=== PATIENT | female | born 1965 | race Caucasian/White ===

== ENCOUNTER 2020-01-11 06:21 | Inpatient (IN) ==
[~2020-01-11 06:21] MED LIST: ROPIVACAINE HCL/PF 100 MG, EPINEPHrine 0.2 MG, KETOROLAC TROMETHAMINE 30 MG in NORMAL S... IJ PRN; TRANEXAMIC ACID 1,000 MG in NORMAL SALINE 100 ML IV PRN; ceFAZolin SODIUM 1 GM VIAL IV PRN
[2020-01-11] MEDS: RINGER'S SOLUTION,LACTATED 1,000 ML IV PRN ×2 (07:10→09:30)
--- NOTE | 2020-01-11 07:23 | ANES ---
Anesthesia Pre Procedure Eval Vitals/Labs: Last Vital Signs Temp 36.9 C 01/11/20 06:27 Pulse 57 L 01/11/20 06:27 Resp 18 01/11/20 06:27 BP 144/79 H 01/11/20 06:27 Pulse Ox 97 01/11/20 06:27 HOME MEDICATIONS atorvastatin 20 mg tablet 20 mg PO DAILY 08/04/18 [Last Taken Unknown] escitalopram oxalate 10 mg tablet 10 mg PO DAILY 08/04/18 [Last Taken Unknown] levetiracetam 500 mg tablet 500 mg PO BID 08/04/18 [Last Taken Unknown] levothyroxine 150 mcg tablet 150 mcg PO DAILY 08/04/18 [Last Taken Unknown] cholecalciferol (vitamin D3) 50 mcg (2,000 unit) capsule 5,000 unit PO DAILY cap 08/10/18 [Last Taken Unknown] olmesartan 40 mg tablet 40 mg PO DAILY #30 tab 10/18/19 [Last Taken Unknown] metoprolol succinate 100 mg tablet,extended release 24 hr 100 mg PO DAILY #90 tab 11/30/19 [Last Taken 01/10/20] Allergies/Adverse Reactions: Allergies Allergy/AdvReac Type Severity Reaction Status Date / Time codeine Allergy upset Verified 01/11/20 06:38 stomach iodine AdvReac Unknown unknown Verified 01/11/20 06:38 carbamazepine [From Tegretol] AdvReac lower Verified 01/11/20 06:38 platelet count phenobarbital AdvReac lower Verified 01/11/20 06:38 platelet count phenytoin sodium AdvReac lower Verified 01/11/20 06:38 [From Dilantin] platelet count phenytoin sodium extended AdvReac lower Verified 01/11/20 06:38 [From Dilantin] platelet count - Planned Procedure Planned Procedure: Right Arthroplasty Total Knee Medication List Reviewed:: Yes Allergies Verified: Yes Medical History (Last Reviewed 01/11/20 @ 07:22 by Jasson Dominguez CRNA) CPAP (continuous positive airway pressure) dependence (Chronic) History of tuberous sclerosis (Chronic) Onset Date: ~2011 Seizures (Chronic) Onset Date: Unknown Plantar fasciitis, bilateral (Resolved) Onset Date: ~2015 Hypothyroidism (Chronic) Onset Date: Unknown Hypertension (Chronic) Onset Date: Unknown Asthma (Chronic) Onset Date: Unknown Sleep apnea Surgical History (Last Reviewed 01/11/20 @ 07:22 by Jasson Dominguez CRNA) History of ankle surgery Onset Date: Unknown right History of section Onset Date: Unknown History of total thyroidectomy Onset Date: ~2011 Family History (Last Reviewed 01/11/20 @ 07:22 by Jasson Dominguez CRNA) Father No known health problems Mother No known health problems - Airway/Neck/Teeth Within Normal Limits:: Yes Teeth Condition: intact Mallampatti Score: 2 Thyromental (T-M) distance: > 6 cm Mandibulo Hyoid distance: > 3 cm - Respiratory Respiratory Physical: lungs clear Smoking Status: Never smoker Discussed smoking cessation including day of surgery: No Sleep Apnea currently treated: No Sleep Apnea by current assessment: No Discussed Risks/Treatment of SAMANTHA: No - Cardiovascular Tolerate Activity: Fair Heart Sounds: S1 & S2, Regular - Gastrointestinal NPO since: mn - Anesthesia Assessment and Plan ASA Class: PS, III Anesthesia Type Plan: Block - Bilateral ultrasound guided adductor canal nerve block for postop analgesia, Spinal
[2020-01-11] MEDS ORDERED: BUPIVACAINE HCL/EPINEPHRINE/PF 30 ML VIAL IJ ONE (07:25)
[2020-01-11] MEDS ORDERED: LIDOCAINE HCL 20 ML VIAL ONE (07:25)
[2020-01-11] MEDS ORDERED: fentaNYL CITRATE/PF 50 MCG/ML AMPUL ONE (07:25)
[2020-01-11] MEDS ORDERED: ONDANSETRON HCL/PF 2 MG/ML VIAL ONE (07:26)
[2020-01-11] MEDS ORDERED: PROPOFOL VIAL IV ONE (07:26)
[2020-01-11] MEDS ORDERED: HYDROmorphone HCL 2 MG/ML VIAL IV PRN (07:30)
[2020-01-11] MEDS ORDERED: PROCHLORPERAZINE EDISYLATE 5 MG/ML VIAL IV PRN (07:30)
[2020-01-11] MEDS ORDERED: diphenhydrAMINE HCL 50 MG/ML VIAL IV PRN ×2 (07:30→09:51)
[2020-01-11] MEDS ORDERED: NALOXONE HCL 0.4 MG/ML VIAL IV PRN (07:30)
[2020-01-11] MEDS ORDERED: oxyCODONE HCL/ACETAMINOPHEN 1 TAB TABLET PO PRN (09:51)
[2020-01-11] MEDS ORDERED: ACETAMINOPHEN 500 MG TABLET PO PRN (09:51)
[2020-01-11] MEDS ORDERED: MORPHINE SULFATE 2 MG/ML DISP.SYRIN IV PRN (09:51)
[2020-01-11] MEDS ORDERED: MAG HYDROX/ALUMINUM HYD/SIMETH 30 ML UDC PO PRN (09:51)
[2020-01-11] MEDS ORDERED: MAGNESIUM HYDROXIDE 30 ML UDC PO PRN (09:51)
--- NOTE | 2020-01-11 09:56 | OR ---
Operative Report - Dictated Report Narrative: Date: 01/11/2020 Preoperative diagnosis: Right knee degenerative joint disease. Postoperative diagnosis: Right knee degenerative joint disease. Procedure: Right total knee arthroplasty. Surgeon: Bebo Saunders M.D. Gas Tester: Mike Huang PA-C provided a set of essential, skilled, educated hands that assisted in positioning, transfer, retraction, manipulation, irrigation, closure of wounds, and placement of dressings all of which could not be provided by the available surgical crew. Anesthesia: Spinal with regional block and local periarticular joint injection. Complications: None Specimens: Bone for disposal. Estimated blood loss: Minimal. Tourniquet time: 58 min at 300 mmHg Retained implants: Depuy Attune size 5 standard lugged cemented posterior stabilized femoral component. Size 4 cemented rotating bearing tibial platform. 5 by 6 millimeter posterior stabilized cross-linked tibial insert. 35 millimeter medialized patella button. Indications: Olivia is a 54-year-old female who has been followed in my clinic for period of time with significant complaints of right knee pain consistent with arthritic changes. They had failed conservative measures including but not limited to activity modification, passage of time, medications, and other cons ervative measures. Patient wished to proceed with surgical treatment. The risks, benefits, and alternatives were discussed in clinic. The risks of , blood clots, bleeding, infection, nerve/tendon blood vessel/ injury, malposition of components, intraoperative fracture, postoperative limited range of motion, persistent pain, failure of components, and need for additional procedures. Patient wished to proceed consent was obtained after answering all questions. Procedure: After marking the correct extremity on the floor, the patient was taken to the operating room. A timeout was performed. IV antibiotics consisting of 2 g of Ancef were administered prior to the procedure. A regional followed by spinal anesthetic was induced by anesthesia. on the operative table with all bony prominences well-padded. Bass catheter was placed and a bump was placed under the operative side buttock. SCDs and AMRIT hose were utilized on the nonoperative leg. A well-padded tourniquet was applied to the operative thigh. The operative leg was then pre-scrubbed with alcohol prepped and draped in a standard sterile fashion. After exsanguinating the extremity with an Esmarch bandage, the tourniquet was inflated. After marking out the anterior knee for standard incision centered over the patella, the skin was incised and dissected down to the joint retinaculum. The joint retinaculum was marked out as well as the horizontal axis of the patella, and a standard medial parapatellar arthrotomy was then made. The most proximal aspect of the quadriceps tendon and the patella tendon insertion were protected from release. A partial synovectomy was performed as well as a resection of the infrapatellar fat pad. The distal femoral fat pad proximal to the trochlea was also resected using cautery. The soft tissues were elevated off the medial aspect of the proximal tibia using a Hancock elevator ensuring that we did not transect the medial collateral ligament. Upon initial evaluation range of motion was approximately 0 degrees to 120 degrees of flexion. There were signs of advanced arthrosis in the medial and patellofemoral joint spaces. There were small marginal osteophytes which were removed with a rongeur. The knee was hyperflexed and the patella was tucked laterally. Protecting the surrounding soft tissues with Homans, an entry drill was placed down the femoral canal using Whitesides line for guidance into the entry point. The intramedullary femoral alignment anabela was utilized in order to cut the distal femur in 5 of valgus resecting 10 millimeters of bone. Next the distal femur was sized to a size 5. An anterior referencing guide was utilized to place the distal femoral cutting block in 3 of external rotation. This was pinned into place. The rotation was confirmed both visually and based on anatomic landmarks. The 4 in 1 cutting jig of the appropriate size was utilized in order to make all bony cuts. Retractors were utilized in order to protect surrounding soft tissues. This cut did not result in any excessive notching. We then cut the box centered over the distal femur. This allowed for resection of the anterior and posterior cruciate ligaments. I then turned my attention to the preparation of the tibia. Using an extra medullary tibial alignment anabela, 8 millimeters of bone and cartilage was resected off the lateral articular surface. This was made perpendicular to the mechanical axis of the joint with the alignment anabela centered over the ankle mortise. The alignment anabela was parallel to the mechanical axis, centered over the medial one third of the tibial tubercle, paralleling the anterior surface of the tibia. We then turned our attention to the remaining meniscus and soft tissues. These were removed while protecting the surrounding ligaments and soft tissues. The marginal osteophytes off the anterior, posterior, medial, lateral aspects of the femur and tibia were removed. The tibia was sized out to a size 4. Next the tibia was drilled and punched in an externally rotated position as confirmed with a drop anabela. Next the trial femur and a series of tibial inserts were utilized in order to allow for full extension and maximal flexion. It was found that a 6 millimeter insert gave the best range of motion and stability at multiple flexion points as well as at full extension there was less than 2 mm of gapping both medially and laterally. There is minimal anterior translation with the knee at 90 of flexion and no signs of being able to dislocate the knee. The patella was then prepared. The initial thickness was 21 millimeters. This was reamed down to 14 millimeters parallel to the anterior surface of the patella. It was sized out to a size 35 mm medialized patella button. This was then drilled and trialed. Without any medial restraint the patella tracked appropriately and did not sublux or dislocate. At this point, it was felt these were the appropriate sized implants and all trials were removed. The standard periarticular joint injection consisting of ropivacaine, Toradol, and epinephrine were injected into the periarticular joint tissues. The bony surfaces were thoroughly irrigated with a pulsatile-suction saline irrigation device. A bone plug from the prior resected anterior chamfer cut was placed into the drill hole at the distal femur. The bony surfaces were then dried in preparation for placement of the implants. The cement was vacuum mixed per the carpenter's helper's instructions. The cement was placed on the dry bony surfaces and posterior aspect of the implants. The implants were impacted into place, removing all extruded cement. At this point anesthesia administered tranexamic acid per protocol intravenously. The knee was placed in extension with axial loading with the trial insert while the cement cured. A dilute 0.35% betadyne-saline solution was used to irrigate the knee and allowed to sit in the knee while the cement cured. Once the cement cured, all remaining extruded cement was removed. The knee was placed through a range of motion with the trial insert to ensure appropriate range of motion and stability. Final range of motion was approximately 0 to 125 degrees. The knee was again thoroughly irrigated with pulsatile saline lavage. The final polyethylene insert was then impacted into place ensuring no retained soft tissues. The remaining periar ticular joint injection was injected. The knee was then packed with lap sponges which were soaked with dilute betadyne solution and the tourniquet was let down. Pressure was held for approximately 2 minutes and then hemostasis was obtained using electrocautery to coagulate any bleeding vessels. The knee was then placed over a triangle and the arthrotomy was closed with interrupted #1 Vicryl after thoroughly irrigating the joint. The deep and subcutaneous tissues were closed with interrupted 0 and 3-0 Vicryl respectively. Skin was closed with a running subcutaneous 3-0 Monocryl and Prineo dressing. 4 x 4's, ABD, Sof-Rol, and a full leg Noel wrap were applied. All sponge, needle, blade, and instrument counts were correct prior to closing the wounds. Postoperative condition: The patient was awoken and transferred to the postanesthesia care unit in stable condition. Plan is to be admitted to the inpatient medical/surgical floor postoperatively for 24 hours of IV antibiotics, physical therapy, occupational therapy, and medical co-management. Patient will be weightbearing as tolerated with range of motion as tolerated. DVT prophylaxis will be with SCDs, AMRIT hose, and pharmacological anticoagulation. Anticipated hospital stay is approximately 2-4 days.
--- NOTE | 2020-01-11 10:18 | ANES ---
Post Anesthesia Discharge - Transfer of Care Transfer of Care handoff given to nurse: Yes - Discharge from PACU Discharge from PACU when meets criteria: Yes - Discharge to ASU Discharge to ASU-no complications/pt stable: Yes
--- NOTE | 2020-01-11 10:20 | ANES ---
Anesthesia Procedure Note Procedure Note: ANESTHESIA PROCEDURE NOTE Date of Procedure: 01/11/2020. Time of procedure: 734. Performed by: Jasson Dominguez CRNA Collections Technician: None. Preprocedure diagnosis: Right knee degenerative joint disease. Post procedure diagnosis: Same. Procedure: Right ultrasound guided adductor canal block for postoperative analgesia. Indications: The patient is a 54-year-old female, requesting right ultrasound- guided abductor canal nerve block for postoperative analgesia related to right total knee arthroplasty. Findings: See below. Details of the procedure: The tissue over the intended target site was cleansed with ChloraPrepand draped in a sterile fashion. 2 ml Lidocaine 1 % was infiltrated to the skin and subcutaneous tissue at the intended target site. Under sterile technique and ultrasound guidance a 20-gauge block needle was inserted through the right sartorius muscle to the saphenous nerve just anterior and medial to the superficial femoral artery and vein. 15 mL's of 0.5% bupivacaine with epinephrine 1-200,000 was injected after negative aspiration for blood. Needle tip and spread of local anesthetic surrounding the saphenous nerve was observed throughout the injection with real time ultrasound visualization. The needle was then removed intact. No complications were noted. The images were retained in the Hospital medical database. EBL: Minimal. Fluids: N/A. Specimen: N/A. Post procedure condition: The patient tolerated the procedure well. No complications were noted. Thank you for this consultation. Jasson Dominguez CRNA
[2020-01-11] MEDS ORDERED: HYDROmorphone HCL 2 MG/ML VIAL ONE (10:30)
[2020-01-11] MEDS ORDERED: ONDANSETRON HCL/PF 2 MG/ML VIAL IV ONE (10:37)
[2020-01-11] MEDS: NORMAL SALINE 1,000 ML IV PRN ×2 (11:02→19:29)
[2020-01-11] MEDS: ONDANSETRON HCL/PF 2 MG/ML VIAL IV PRN (12:52)
[2020-01-11] MEDS: oxyCODONE HCL/ACETAMINOPHEN 1 TAB TABLET PO PRN ×2 (12:53→18:33)
--- NOTE | 2020-01-11 13:30 | ANES ---
Post Anesthesia Assessment - Vital Signs Vitals: Last Vital Signs Temp 36.7 C 01/11/20 11:42 Pulse 57 L 01/11/20 12:42 Resp 16 01/11/20 11:42 BP 121/73 01/11/20 12:42 Pulse Ox 92 L 01/11/20 12:42 Airway Patency: Normal - Mental Status Level Of Consciousness: Awake - Pain Level Pain Score: 2 - N/V Assessment Nausea/Vomiting Presence: None Dehydration:: No
[2020-01-11] MEDS: ceFAZolin SODIUM 2 GM in DEXTROSE 5 % IN WATER 50 ML IV SCH ×4 (15:04→23:12)
[2020-01-11] MEDS: levETIRAcetam 500 MG TABLET PO SCH (20:06)
[2020-01-11] MEDS ORDERED: SENNOSIDES/DOCUSATE SODIUM 1 TAB TABLET PO SCH (21:00)
[2020-01-11] MEDS ORDERED: ROSUVASTATIN CALCIUM 10 MG TABLET PO SCH (21:00)
[2020-01-12] MEDS: oxyCODONE HCL/ACETAMINOPHEN 1 TAB TABLET PO PRN ×4 (02:35→17:47)
[2020-01-12] MEDS ORDERED: LEVOTHYROXINE SODIUM 150 MCG TABLET PO SCH (07:00)
[2020-01-12] MEDS: ceFAZolin SODIUM 2 GM in DEXTROSE 5 % IN WATER 50 ML IV SCH ×2 (08:43)
[2020-01-12] MEDS: levETIRAcetam 500 MG TABLET PO SCH (08:43)
[2020-01-12] MEDS ORDERED: ENOXAPARIN SODIUM 40 MG/0.4 ML SYRG SC SCH (08:52)
[2020-01-12] MEDS ORDERED: CHOLECALCIFEROL 5,000 UNIT TABLET PO SCH (09:00)
[2020-01-12] MEDS ORDERED: METOPROLOL SUCCINATE 100 MG TABLET.SA PO SCH ×2 (09:00→21:00)
[2020-01-12] MEDS ORDERED: LOSARTAN POTASSIUM 50 MG TABLET PO SCH ×2 (09:00→21:00)
[2020-01-12] MEDS ORDERED: ESCITALOPRAM OXALATE 10 MG TAB PO SCH (09:00)
[2020-01-12] MEDS: ONDANSETRON HCL/PF 2 MG/ML VIAL IV PRN (09:21)
--- NOTE | 2020-01-12 15:54 | DS ---
(1) Status post total right knee replacement using cement Problem: Acute Date of Discharge:: 01/12/20 Hospital Course: -54-year-old female postop day 1 status post right total knee arthroplasty. Patient is had an uncomplicated stay at the hospital she was admitted postoperatively to monitor for postoperative complications, perform PT/OT, past goals prior to discharge, return to p.o. diet, pain control with p.o. medications. Patient is doing well without significant complication at this ti nv. Her pain is well controlled. She has met all goals with PT/OT. She is returned to p.o. diet without significant complications. Exam right lower extremity reveals intact light touch, 5/5 plantar flexion dorsiflexion ankle, pernio in place without significant erythema or drainage, use mild tenderness about right knee, distal capillary refill brisk. Patient will be discharged home with self-care. Patient will continue with following recommendations: -PT/OT progress as tolerated per protocol -Weightbearing as tolerated, assistive device PRN -P.o. pain medication PRN -Diet as tolerated, Zofran as needed -DVT prophylaxis full dose aspirin 325 mg twice daily for 1 week followed by once daily for 6 weeks -Follow-up with orthopedic outpatient clinic at 2 weeks postop -Maintain pernio dressing in place -Disposition: Discharge home with self-care, begin outpatient PT/OT, follow-up at orthopedic outpatient clinic at 2 weeks postop Procedures Performed: see notes below List Procedures: Status post right total knee arthroplasty Discharge Location: Home Disposition: Home self-care Condition: Stable Discharge Activity: Activity as tolerated, Weight bearing - Assistive device PRN Discharge Diet: General/regular food Referrals: Talia Larson MD [Primary Care Provider] - Problem Oriented Discharge Instructions to Patient/Family: Total Knee Replacement, Care After, Hytr-[id number] Print Language (Setswana or Mohawk Available): Setswana Additional Patient Instructions (free text): Follow up Physical Therapy at [facility] outpatient rehab department on January 12 at 9:15am. Follow up Orthopedic office appointment on FridayJanuary 25 at 9:30am. Prescriptions (Any new or edited meds): oxyCODONE HCL/ACETAMINOPHEN [Percocet 5 MG/325 MG] 1 - 2 tab PO Q4H PRN #60 tab PRN Reason: Severe Pain (Pain Scale 7-10) Transmission Status: Received by [facility] #[id number] Complete Home Medications List: Complete Home Medication List: atorvastatin 20 mg tablet 20 mg PO DAILY 08/04/18 escitalopram oxalate 10 mg tablet 10 mg PO DAILY 08/04/18 levetiracetam 500 mg tablet 500 mg PO BID 08/04/18 levothyroxine 150 mcg tablet 150 mcg PO DAILY 08/04/18 cholecalciferol (vitamin D3) 50 mcg (2,000 unit) capsule 5,000 unit PO DAILY cap 08/10/18 olmesartan 40 mg tablet 40 mg PO DAILY #30 tab 10/18/19 metoprolol succinate 100 mg tablet,extended release 24 hr 100 mg PO DAILY #90 tab 11/30/19 Aspirin 325 mg PO BID #60 tab 01/12/20 Ondansetron [Zofran Odt] 4 mg PO Q8H PRN #20 tab 01/12/20 oxyCODONE HCL/ACETAMINOPHEN [Percocet 5 MG/325 MG] 1 - 2 tab PO Q4H PRN #60 tab 01/12/20 Amb Orders for Discharge: PT Evaluation and Treatment* Location: None Selected Forms: Patient Portal Registration
[2020-01-12 17:58] VITALS: BP 142/70
== END 2020-01-12 17:55 | disposition home or self-care (01) | DRG 470 ==
LOC: MS 06:21 → EDSTATUS 08:00
PROVIDERS: ADMIT Orthopaedic Surgery; ATTEND Orthopaedic Surgery
DX: I10 Essential (primary) hypertension; M17.11 Unilateral primary osteoarthritis, right knee; E03.9 Hypothyroidism, unspecified; J45.909 Unspecified asthma, uncomplicated
CPT/HCPCS: 73560; 94660; 97110; 97116; 97161; 97165; J2405